=== PATIENT | female | born 1945 | race Caucasian/White ===

== ENCOUNTER 2017-01-03 00:32 | Emergency (ER) | payer MEDICARE, BC ==
[~2017-01-03 00:32] MED LIST: ADULT LOW DOSE81 MG; ASPIR 8181 M1 PO; ASPIR 8181 MG; ASPIRIN325 M3 PO; ATORVASTATIN CA40 M1 PO; CALCITRIOL0.25 MC1 PO; CATAPRES0.3 M1 PO; CEFTIN500 MG PO; CIPRO250 M2 PO; CLONIDINE HCL0.1 MG; CLONIDINE HCL0.2 M1 PO; COLACE100 M1 PO; DILTIAZEM 24HR300 M2 PO; DILTIAZEM 24HR300 M3 PO; DULCOLAX5 M1 PO; FIBER TABS625 MG; FUROSEMIDE40 M2 PO; IRON325 ( 65; KEFLEX500 M4 PO; LASIX40 MG; LASIX40 MG PO; LEVOTHROID100 MCG; LEVOTHYROXINE100 MC1 PO; LEVOXYL50 MCG; LIPITOR10 MG; LORTAB 5/500 TA1 TAB PO; METOPROLOL PO; NORCO 5-325 TA1 EACH PO; NORVASC; NORVASC10 MG; OYSTER CALCIUM500 MG; PERCOCET 5-3251 EACH PO; SENNA-S TABLET1 EAC3 PO; SYNTHROID112 MC1 PO; THYROID MED; TOPROL; TOPROL XL100 M1 PO; TOPROL XL100 MG; TRAMADOL HCL50 M2 PO; TYLENOL325 M2 PO; VITAMIN D31000 UNI3 PO
[2017-01-03 01:54] LABS: BASO % 0.5 % (0-2); EOS % 4.2 % (0-7); EOSINOPHIL ABSOLUTE COUNT 0.4 tho/cmm (0.0-0.7); HCT-HEMATOCRIT 37.1 % (34.0-49.0); HGB-HEMOGLOBIN 11.9 gm/dl (12.0-15.5); IMMATURE GRANULOCYTES ABSOLUTE 0.02 tho/cmm (0-0.03); IMMATURE GRANULOCYTES PERCENT 0.2 % (0-0.3); LYMPH % 20.5 % (20-45); LYMPH ABSOLUTE COUNT 1.8 tho/cmm (0.8-4.5); MCH (MEAN CORPUSCULAR HGB) 30.7 pg (28.0-32.0); MCHC MEAN CORPUSCULAR HGB CONC 32.1 % (32.0-36.0); MCV (MEAN CELL VOLUME) 95.9 fl (82.0-96.0); MEAN PLATELET VOLUME 11.4 cmc (9.4-12.4); MONO % 6.3 % (0-12); MONOCYTE ABSOLUTE COUNT 0.6 tho/cmm (0.0-1.2); NEUTROPHILS % 68.3 % (40-80); PLATELET COUNT 202 tho/cmm (150-450); RED BLOOD COUNT 3.87 mil/cmm (4.00-5.20); RED CELL DISTRIBUTION WIDTH 15.2 % (12.4-16.4); WHITE BLOOD COUNT 8.8 tho/cmm (4.0-10.0)
[2017-01-03 02:05] LABS: ALBUMIN 3.4 g/dl (3.5-5.0); ALKALINE PHOSPHATASE 158 U/L (33-138); ALT/SGPT 21 U/L (12-78); ANION GAP 12 mmol/L (0-20); AST/SGOT 19 U/L (10-40); BILIRUBIN,TOTAL 0.9 mg/dl (0-1.5); BLOOD UREA NITROGEN 34 mg/dl (6-24); CALCIUM 8.9 mg/dl (8.5-10.5); CARBON DIOXIDE-VENOUS 25 mmol/L (22-32); CHLORIDE 114 mmol/l (96-110); CREATININE 2.62 mg/dl (0.50-1.10); GLUCOSE 122 mg/dL (70-110); POTASSIUM 4.3 mmol/L (3.7-5.1); SODIUM 147 mmol/L (135-145); eGFR VALUE FOR BLACK 20 mL/Min
[2017-01-03] MEDS ORDERED: ZITHROMAX250 M1 PO (02:19)
[2017-06-01] MEDS ORDERED: ISOSORBIDE MONO30 M4 PO (10:37)
[2017-06-01] MEDS ORDERED: DEMADEX20 M1 PO (15:30)
[2017-06-10] MEDS ORDERED: STOP HOME MEDICATION (13:06)
[2017-06-10] MEDS ORDERED: ZOLOFT25 M1 PO (13:07)
[2017-06-10] MEDS ORDERED: ANORO ELLIPTA1 EAC1 INH (16:38)
== END 2017-01-03 02:33 ==
LOC: EDMED 00:32
PROVIDERS: Emergency Medicine Emergency Medical Services
DX: J32.9 Chronic sinusitis, unspecified (principal); I10 Essential (primary) hypertension; G47.33 Obstructive sleep apnea (adult) (pediatric); E07.9 Disorder of thyroid, unspecified; Z90.710 Acquired absence of both cervix and uterus; Z79.82 Long term (current) use of aspirin; Z79.899 Other long term (current) drug therapy; Z79.890 Hormone replacement therapy

== ENCOUNTER 2017-01-22 15:54 | Emergency (ER) | payer MEDICARE, BC ==
[~2017-01-22 15:54] MED LIST changes: +ZITHROMAX250 M1 PO
[2017-01-22] MEDS ORDERED: ZOFRAN ODT4 MG PO (17:50)
[2017-06-01] MEDS ORDERED: ISOSORBIDE MONO30 M4 PO (10:37)
[2017-06-01] MEDS ORDERED: DEMADEX20 M1 PO (15:30)
[2017-06-10] MEDS ORDERED: STOP HOME MEDICATION (13:06)
[2017-06-10] MEDS ORDERED: ZOLOFT25 M1 PO (13:07)
[2017-06-10] MEDS ORDERED: ANORO ELLIPTA1 EAC1 INH (16:38)
== END 2017-01-22 18:25 ==
LOC: EDMED 15:54
DX: J02.9 Acute pharyngitis, unspecified (principal); R11.0 Nausea; I10 Essential (primary) hypertension

== ENCOUNTER 2017-02-11 16:02 | Observation (INO) | payer MEDICARE, BC ==
[~2017-02-11 16:02] MED LIST changes: +ZOFRAN ODT4 MG PO
[2017-02-11] MEDS ORDERED: CATAPRES0.3 M1 PO (16:09)
[2017-02-11 16:53] LABS: BASO % 0.3 % (0-2); EOS % 4.8 % (0-7); EOSINOPHIL ABSOLUTE COUNT 0.4 tho/cmm (0.0-0.7); HCT-HEMATOCRIT 34.1 % (34.0-49.0); IMMATURE GRANULOCYTES ABSOLUTE 0.02 tho/cmm (0-0.03); IMMATURE GRANULOCYTES PERCENT 0.2 % (0-0.3); LYMPH % 22.4 % (20-45); MCH (MEAN CORPUSCULAR HGB) 29.6 pg (28.0-32.0); MCHC MEAN CORPUSCULAR HGB CONC 32.3 % (32.0-36.0); MCV (MEAN CELL VOLUME) 91.9 fl (82.0-96.0); MEAN PLATELET VOLUME 11.6 cmc (9.4-12.4); MONO % 5.5 % (0-12); MONOCYTE ABSOLUTE COUNT 0.5 tho/cmm (0.0-1.2); NEUTROPHILS % 66.8 % (40-80); PLATELET COUNT 236 tho/cmm (150-450); RED BLOOD COUNT 3.71 mil/cmm (4.00-5.20); RED CELL DISTRIBUTION WIDTH 15.7 % (12.4-16.4)
[2017-02-11 17:10] LABS: ANION GAP 16 mmol/L (0-20); BLOOD UREA NITROGEN 28 mg/dl (6-24); CALCIUM 9.2 mg/dl (8.5-10.5); CARBON DIOXIDE-VENOUS 23 mmol/L (22-32); CHLORIDE 112 mmol/l (96-110); CREATININE 2.37 mg/dl (0.50-1.10); GLUCOSE 83 mg/dL (70-110); POTASSIUM 3.9 mmol/L (3.7-5.1); SODIUM 147 mmol/L (135-145); eGFR VALUE FOR BLACK 23 mL/Min
[2017-02-11 22:28] LABS: ALB/GLOB RATIO 0.7 (0.8-2.0); BILIRUBIN,DIRECT 0.2 mg/dl (0.0-0.3); BILIRUBIN,INDIRECT 0.4 mg/dL (0.0-1.0); BILIRUBIN,TOTAL 0.6 mg/dl (0-1.5); MAGNESIUM 2.1 mg/dl (1.8-2.6)
[2017-02-11 23:50] LABS: URINE APPEARANCE HAZY; URINE BILIRUBIN NEGATIVE (NEG); URINE BLOOD NEGATIVE (NEG); URINE COLOR YELLOW; URINE GLUCOSE (UA) NEGATIVE (NEG); URINE KETONE NEGATIVE (NEG); URINE LEUKOCYTE ESTERASE NEGATIVE (NEG); URINE NITRITE NEGATIVE (NEG); URINE PROTEIN LARGE (NEG)
[2017-02-11 23:55] LABS: URINE RBC 0 /[HPF] (0-5)
[2017-02-11 23:56] LABS: URINE BACTERIA 1+
[2017-02-12 04:28] LABS: BASO % 0.3 % (0-2); EOS % 3.3 % (0-7); EOSINOPHIL ABSOLUTE COUNT 0.3 tho/cmm (0.0-0.7); HCT-HEMATOCRIT 33.4 % (34.0-49.0); HGB-HEMOGLOBIN 10.6 gm/dl (12.0-15.5); IMMATURE GRANULOCYTES ABSOLUTE 0.01 tho/cmm (0-0.03); IMMATURE GRANULOCYTES PERCENT 0.1 % (0-0.3); LYMPH ABSOLUTE COUNT 2.2 tho/cmm (0.8-4.5); MCH (MEAN CORPUSCULAR HGB) 29.2 pg (28.0-32.0); MCHC MEAN CORPUSCULAR HGB CONC 31.7 % (32.0-36.0); MEAN PLATELET VOLUME 11.9 cmc (9.4-12.4); MONO % 6.9 % (0-12); MONOCYTE ABSOLUTE COUNT 0.6 tho/cmm (0.0-1.2); NEUTROPHIL ABSOLUTE COUNT 5.6 tho/cmm (1.6-8.0); NEUTROPHIL-AUTOMATED 5.6 tho/cmm (1.6-8.0); NEUTROPHILS % 64.4 % (40-80); PLATELET COUNT 229 tho/cmm (150-450); RED BLOOD COUNT 3.63 mil/cmm (4.00-5.20); RED CELL DISTRIBUTION WIDTH 15.6 % (12.4-16.4); WHITE BLOOD COUNT 8.7 tho/cmm (4.0-10.0)
[2017-02-12 04:40] LABS: ANION GAP 14 mmol/L (0-20); BLOOD UREA NITROGEN 25 mg/dl (6-24); CALCIUM 9.1 mg/dl (8.5-10.5); CARBON DIOXIDE-VENOUS 25 mmol/L (22-32); CHLORIDE 112 mmol/l (96-110); CREATININE 2.38 mg/dl (0.50-1.10); GLUCOSE 97 mg/dL (70-110); POTASSIUM 3.5 mmol/L (3.7-5.1); SODIUM 147 mmol/L (135-145); eGFR VALUE FOR BLACK 23 mL/Min
[2017-02-12 05:27] LABS: ESR-ERYTHROCYTE SED RATE 70 mm/hr (0-30)
[2017-02-13 05:53] LABS: ANION GAP 14 mmol/L (0-20); BLOOD UREA NITROGEN 31 mg/dl (6-24); CALCIUM 8.7 mg/dl (8.5-10.5); CARBON DIOXIDE-VENOUS 25 mmol/L (22-32); CHLORIDE 111 mmol/l (96-110); CREATININE 2.53 mg/dl (0.50-1.10); GLUCOSE 91 mg/dL (70-110); POTASSIUM 3.2 mmol/L (3.7-5.1); SODIUM 147 mmol/L (135-145); eGFR VALUE FOR BLACK 21 mL/Min
[2017-02-13 14:23] LABS: ANION GAP 15 mmol/L (0-20); BLOOD UREA NITROGEN 33 mg/dl (6-24); CALCIUM 9.2 mg/dl (8.5-10.5); CARBON DIOXIDE-VENOUS 26 mmol/L (22-32); CHLORIDE 109 mmol/l (96-110); CREATININE 2.62 mg/dl (0.50-1.10); GLUCOSE 122 mg/dL (70-110); SODIUM 146 mmol/L (135-145); eGFR VALUE FOR BLACK 20 mL/Min
[2017-02-13 14:24] LABS: POTASSIUM 4.1 mmol/L (3.7-5.1)
[2017-02-14 05:04] LABS: ANION GAP 15 mmol/L (0-20); BLOOD UREA NITROGEN 38 mg/dl (6-24); CARBON DIOXIDE-VENOUS 25 mmol/L (22-32); CHLORIDE 112 mmol/l (96-110); CREATININE 2.57 mg/dl (0.50-1.10); GLUCOSE 97 mg/dL (70-110); POTASSIUM 3.7 mmol/L (3.7-5.1); SODIUM 148 mmol/L (135-145); eGFR VALUE FOR BLACK 21 mL/Min
[2017-02-14] MEDS ORDERED: NORVASC10 M2 PO (11:31)
[2017-02-14] MEDS ORDERED: DEMADEX20 M1 PO (11:32)
[2017-06-01] MEDS ORDERED: ISOSORBIDE MONO30 M4 PO (10:37)
[2017-06-01] MEDS ORDERED: DEMADEX20 M1 PO (15:30)
[2017-06-10] MEDS ORDERED: STOP HOME MEDICATION (13:06)
[2017-06-10] MEDS ORDERED: ZOLOFT25 M1 PO (13:07)
[2017-06-10] MEDS ORDERED: ANORO ELLIPTA1 EAC1 INH (16:38)
== END 2017-02-14 12:50 ==
LOC: EDMED 16:02 → EMR2 21:00 → PCUA 21:45
PROVIDERS: Emergency Medicine; Internal Medicine Cardiovascular Disease; ADMIT Hospitalist
DX: I13.0 Hypertensive heart and chronic kidney disease with heart failure and stage 1 through stage 4 chronic kidney disease, or unspecified chronic kidney disease (principal); E11.22 Type 2 diabetes mellitus with diabetic chronic kidney disease; N18.4 Chronic kidney disease, stage 4 (severe); I50.31 Acute diastolic (congestive) heart failure; R91.8 Other nonspecific abnormal finding of lung field; J98.11 Atelectasis; I07.1 Rheumatic tricuspid insufficiency; I27.2 Other secondary pulmonary hypertension; I35.1 Nonrheumatic aortic (valve) insufficiency; G47.33 Obstructive sleep apnea (adult) (pediatric); E03.9 Hypothyroidism, unspecified; I73.9 Peripheral vascular disease, unspecified; E87.6 Hypokalemia; Z79.82 Long term (current) use of aspirin; Z79.899 Other long term (current) drug therapy; Z88.0 Allergy status to penicillin; Z88.8 Allergy status to other drugs, medicaments and biological substances; Z91.041 Radiographic dye allergy status; Z86.010 Personal history of colon polyps; Z87.891 Personal history of nicotine dependence; Z86.73 Personal history of transient ischemic attack (TIA), and cerebral infarction without residual deficits; Z82.49 Family history of ischemic heart disease and other diseases of the circulatory system; Z90.710 Acquired absence of both cervix and uterus; Z90.79 Acquired absence of other genital organ(s); Z90.722 Acquired absence of ovaries, bilateral; Z98.51 Tubal ligation status; Z98.49 Cataract extraction status, unspecified eye; Z96.641 Presence of right artificial hip joint; Z98.890 Other specified postprocedural states
CPT/HCPCS: A9500; G0378; G8978-GO-CH; G8978-GO-CI; G8978-GP-CJ; G8978-GP-CK; G8979-GO-CH; G8979-GP-CJ; G8979-GP-CK; G8980-GO-CI; G8980-GP-CK; G8987-GO-CH; G8987-GO-CI; G8988-GO-CH; G8989-GO-CI; J0456; J1650; J1940; J2785; J3480; J7030; J7050

== ENCOUNTER 2017-04-01 18:22 | Inpatient (IN) | payer MEDICARE, BC ==
[~2017-04-01 18:22] MED LIST changes: +DEMADEX20 M1 PO; +NORVASC10 M2 PO
[2017-04-01] MEDS ORDERED: POTASSIUM CHLO10 ME2 PO (19:50)
[2017-04-01 20:52] LABS: BASO % 0.6 % (0-2); BASO ABSOLUTE COUNT 0.1 tho/cmm (0.0-0.2); EOS % 1.4 % (0-7); EOSINOPHIL ABSOLUTE COUNT 0.2 tho/cmm (0.0-0.7); HCT-HEMATOCRIT 36.1 % (34.0-49.0); HGB-HEMOGLOBIN 11.6 gm/dl (12.0-15.5); IMMATURE GRANULOCYTES ABSOLUTE 0.02 tho/cmm (0-0.03); IMMATURE GRANULOCYTES PERCENT 0.2 % (0-0.3); LYMPH % 15.5 % (20-45); LYMPH ABSOLUTE COUNT 1.9 tho/cmm (0.8-4.5); MCH (MEAN CORPUSCULAR HGB) 29.1 pg (28.0-32.0); MCHC MEAN CORPUSCULAR HGB CONC 32.1 % (32.0-36.0); MCV (MEAN CELL VOLUME) 90.5 fl (82.0-96.0); MEAN PLATELET VOLUME 11.1 cmc (9.4-12.4); MONO % 7.3 % (0-12); MONOCYTE ABSOLUTE COUNT 0.9 tho/cmm (0.0-1.2); NEUTROPHIL ABSOLUTE COUNT 9.3 tho/cmm (1.6-8.0); NEUTROPHIL-AUTOMATED 9.3 tho/cmm (1.6-8.0); PLATELET COUNT 266 tho/cmm (150-450); RED BLOOD COUNT 3.99 mil/cmm (4.00-5.20); RED CELL DISTRIBUTION WIDTH 16.9 % (12.4-16.4); WHITE BLOOD COUNT 12.4 tho/cmm (4.0-10.0)
[2017-04-01 21:06] LABS: ALB/GLOB RATIO 0.7 (0.8-2.0); ALBUMIN 3.5 g/dl (3.5-5.0); ALKALINE PHOSPHATASE 202 U/L (33-138); ALT/SGPT 25 U/L (12-78); ANION GAP 16 mmol/L (0-20); AST/SGOT 31 U/L (10-40); BILIRUBIN,TOTAL 0.7 mg/dl (0-1.5); BLOOD UREA NITROGEN 38 mg/dl (6-24); CALCIUM 8.7 mg/dl (8.5-10.5); CARBON DIOXIDE-VENOUS 22 mmol/L (22-32); CHLORIDE 108 mmol/l (96-110); CREATININE 3.87 mg/dl (0.50-1.10); GLUCOSE 123 mg/dL (70-110); LIPASE 226 U/L (73-393); POTASSIUM 3.8 mmol/L (3.7-5.1); SODIUM 142 mmol/L (135-145); eGFR VALUE FOR BLACK 13 mL/Min
[2017-04-02 00:06] LABS: C-REACTIVE PROTEIN 1.4 mg/dl (0-0.9)
[2017-04-02 01:36] LABS: URINE BILIRUBIN NEGATIVE (NEG); URINE BLOOD MODERATE (NEG); URINE GLUCOSE (UA) NEGATIVE (NEG); URINE KETONE NEGATIVE (NEG); URINE LEUKOCYTE ESTERASE POSITIVE (NEG); URINE NITRITE NEGATIVE (NEG); URINE PROTEIN LARGE (NEG)
[2017-04-02 01:44] LABS: URINE COLOR YELLOW
[2017-04-02 01:45] LABS: URINE APPEARANCE CLOUDY
[2017-04-02 01:47] LABS: URINE BACTERIA 2+
[2017-04-02 02:35] LABS: BASO % 0.2 % (0-2); EOS % 0.1 % (0-7); HCT-HEMATOCRIT 34.9 % (34.0-49.0); HGB-HEMOGLOBIN 11.2 gm/dl (12.0-15.5); IMMATURE GRANULOCYTES ABSOLUTE 0.05 tho/cmm (0-0.03); IMMATURE GRANULOCYTES PERCENT 0.3 % (0-0.3); LYMPH % 7.2 % (20-45); LYMPH ABSOLUTE COUNT 1.3 tho/cmm (0.8-4.5); MCH (MEAN CORPUSCULAR HGB) 29.4 pg (28.0-32.0); MCHC MEAN CORPUSCULAR HGB CONC 32.1 % (32.0-36.0); MCV (MEAN CELL VOLUME) 91.6 fl (82.0-96.0); MEAN PLATELET VOLUME 11.3 cmc (9.4-12.4); MONO % 6.8 % (0-12); MONOCYTE ABSOLUTE COUNT 1.2 tho/cmm (0.0-1.2); NEUTROPHIL ABSOLUTE COUNT 15.6 tho/cmm (1.6-8.0); NEUTROPHIL-AUTOMATED 15.6 tho/cmm (1.6-8.0); NEUTROPHILS % 85.4 % (40-80); PLATELET COUNT 235 tho/cmm (150-450); RED BLOOD COUNT 3.81 mil/cmm (4.00-5.20); RED CELL DISTRIBUTION WIDTH 17.1 % (12.4-16.4); WHITE BLOOD COUNT 18.2 tho/cmm (4.0-10.0)
[2017-04-02 02:52] LABS: ALB/GLOB RATIO 0.7 (0.8-2.0); ALBUMIN 3.4 g/dl (3.5-5.0); ALKALINE PHOSPHATASE 189 U/L (33-138); ALT/SGPT 22 U/L (12-78); ANION GAP 15 mmol/L (0-20); AST/SGOT 36 U/L (10-40); BILIRUBIN,TOTAL 0.7 mg/dl (0-1.5); BLOOD UREA NITROGEN 38 mg/dl (6-24); CARBON DIOXIDE-VENOUS 21 mmol/L (22-32); CHLORIDE 111 mmol/l (96-110); CREATININE 4.04 mg/dl (0.50-1.10); GLUCOSE 147 mg/dL (70-110); POTASSIUM 4.2 mmol/L (3.7-5.1); SODIUM 143 mmol/L (135-145); eGFR VALUE FOR BLACK 12 mL/Min
[2017-04-02 03:26] LABS: PROCALCITONIN 0.09 ng/ml (0.05-0.09)
[2017-04-02 06:32] LABS: PROCALCITONIN 0.14 ng/ml (0.05-0.09)
--- NOTE | 2017-04-02 15:48 | NUR ---
VIRTUAL CARE NOTE: PT AWAKE, RESTING IN BED. PT STATES SHE GOT LASIX AND IS NOW UP FREQ TO COMMODE, FEELING INCREASED FATIGUE/SOB WITH ACTIVITY. PT REQUEST ASSISTANCE TO MOVE TO CHAIR. AIDE/NURSE PAGED. PT HX CHF STATES SHE DOES WAY HERSELF DAILY AT HOME AND DENIED MORE THAN 1# WT INCREASE, STATES SOB DID NOT START UNTIL SHE ARRIVED TO HOSPITAL. PT DENIES CONCERNS AT THIS TIME. VN WILL CONTINUE TO MONITOR ELECTRONIC RECORD AND FOLLOW W/ PT
--- NOTE | 2017-04-02 19:24 | NUR ---
VIRTUAL CARE NOTE: ASSESSMENT DEFERRED. PT. SLEEPING.
[2017-04-03 05:33] LABS: BASO % 0.2 % (0-2); EOS % 0.1 % (0-7); HCT-HEMATOCRIT 31.9 % (34.0-49.0); IMMATURE GRANULOCYTES ABSOLUTE 0.05 tho/cmm (0-0.03); IMMATURE GRANULOCYTES PERCENT 0.4 % (0-0.3); LYMPH % 13.8 % (20-45); LYMPH ABSOLUTE COUNT 1.9 tho/cmm (0.8-4.5); MCH (MEAN CORPUSCULAR HGB) 28.7 pg (28.0-32.0); MCHC MEAN CORPUSCULAR HGB CONC 31.3 % (32.0-36.0); MCV (MEAN CELL VOLUME) 91.4 fl (82.0-96.0); MEAN PLATELET VOLUME 11.4 cmc (9.4-12.4); MONO % 6.8 % (0-12); NEUTROPHIL ABSOLUTE COUNT 11.1 tho/cmm (1.6-8.0); NEUTROPHIL-AUTOMATED 11.1 tho/cmm (1.6-8.0); NEUTROPHILS % 78.7 % (40-80); PLATELET COUNT 183 tho/cmm (150-450); RED BLOOD COUNT 3.49 mil/cmm (4.00-5.20); RED CELL DISTRIBUTION WIDTH 16.9 % (12.4-16.4); WHITE BLOOD COUNT 14.1 tho/cmm (4.0-10.0)
[2017-04-03 05:47] LABS: ALB/GLOB RATIO 0.6 (0.8-2.0); ALBUMIN 2.8 g/dl (3.5-5.0); ALKALINE PHOSPHATASE 144 U/L (33-138); ALT/SGPT 23 U/L (12-78); ANION GAP 14 mmol/L (0-20); AST/SGOT 64 U/L (10-40); BILIRUBIN,TOTAL 0.9 mg/dl (0-1.5); BLOOD UREA NITROGEN 47 mg/dl (6-24); CALCIUM 7.7 mg/dl (8.5-10.5); CARBON DIOXIDE-VENOUS 22 mmol/L (22-32); CHLORIDE 106 mmol/l (96-110); GLUCOSE 117 mg/dL (70-110); SODIUM 138 mmol/L (135-145); eGFR VALUE FOR BLACK 10 mL/Min
--- NOTE | 2017-04-03 13:05 | NUR ---
VIRTUAL CARE NOTE: PT AWAKE, SITTING UP IN CHAIR, NO VISITORS AT BEDSIDE AT THIS TIME. PT STATES SHE IS DOING REALLY WELL TODAY, DENIES SOB, STATES LESS COUGHING TODAY, O2 ON. PT HAS HX OF RENAL FAILURE AND STATES NEEDED DIALYSIS X 3 MONTH, AWARE OF DECREASE RENAL FXN THIS HOSPITAL STAY, AWARE AND VERBALIZES UNDERSTANDING OF TESTS ORDERED. PT DENIES QUESTIONS/CONCERNS AT THIS TIME. VN WILL CONTINUE TO MONITOR ELECTRONIC RECORD AND FOLLOW W/ PT
--- NOTE | 2017-04-03 19:20 | NUR ---
VIRTUAL CARE NOTE: PT. IS IN HER CHAIR, O2 ON AT 2L PER N/C WHICH IS REDUCED FROM PRIOR DAY. STATES THAT SHE IS NOT IN PAIN AND FEELS SO MUCH BETTER TODAY. SHE ALSO EXPLAINS THAT HER DOCTORS ARE JUST HOPING HER KIDNEYS SNAP OUT OF IT SO SHE THEN COULD GO HOME. EDUCATION ALSO REVIEWED OF FALL RISK PREVENTION. IS ABLE TO EXPLAIN EDUCATION BACK. INSTRUCTED TO CALL FOR FUTURE NEEDS. STATES VERBAL UNDERSTANDING.
[2017-04-04 05:45] LABS: BASO % 0.2 % (0-2); EOS % 0.4 % (0-7); HCT-HEMATOCRIT 29.8 % (34.0-49.0); HGB-HEMOGLOBIN 9.2 gm/dl (12.0-15.5); LYMPH ABSOLUTE COUNT 0.8 tho/cmm (0.8-4.5); MCHC MEAN CORPUSCULAR HGB CONC 30.9 % (32.0-36.0); MCV (MEAN CELL VOLUME) 90.6 fl (82.0-96.0); MEAN PLATELET VOLUME 12.1 cmc (9.4-12.4); MONO % 5.7 % (0-12); MONOCYTE ABSOLUTE COUNT 0.6 tho/cmm (0.0-1.2); NEUTROPHIL ABSOLUTE COUNT 8.5 tho/cmm (1.6-8.0); NEUTROPHIL-AUTOMATED 8.5 tho/cmm (1.6-8.0); NEUTROPHILS % 85.7 % (40-80); PLATELET COUNT 158 tho/cmm (150-450); RED BLOOD COUNT 3.29 mil/cmm (4.00-5.20); RED CELL DISTRIBUTION WIDTH 16.2 % (12.4-16.4); WHITE BLOOD COUNT 9.9 tho/cmm (4.0-10.0)
[2017-04-04 05:53] LABS: ALB/GLOB RATIO 0.6 (0.8-2.0); ALBUMIN 2.6 g/dl (3.5-5.0); ALKALINE PHOSPHATASE 147 U/L (33-138); ALT/SGPT 24 U/L (12-78); ANION GAP 16 mmol/L (0-20); AST/SGOT 44 U/L (10-40); BILIRUBIN,TOTAL 0.8 mg/dl (0-1.5); BLOOD UREA NITROGEN 56 mg/dl (6-24); CALCIUM 7.4 mg/dl (8.5-10.5); CARBON DIOXIDE-VENOUS 20 mmol/L (22-32); CHLORIDE 102 mmol/l (96-110); CREATININE 5.01 mg/dl (0.50-1.10); GLUCOSE 149 mg/dL (70-110); MAGNESIUM 1.8 mg/dl (1.8-2.6); PHOSPHOROUS 3.6 mg/dl (2.5-4.9); POTASSIUM 3.9 mmol/L (3.7-5.1); SODIUM 134 mmol/L (135-145); eGFR VALUE FOR BLACK 9 mL/Min
[2017-04-04 14:01] LABS: BASO % 0.3 % (0-2); EOS % 0.4 % (0-7); HCT-HEMATOCRIT 28.2 % (34.0-49.0); HGB-HEMOGLOBIN 9.1 gm/dl (12.0-15.5); IMMATURE GRANULOCYTES ABSOLUTE 0.02 tho/cmm (0-0.03); IMMATURE GRANULOCYTES PERCENT 0.3 % (0-0.3); LYMPH % 12.6 % (20-45); MCH (MEAN CORPUSCULAR HGB) 28.4 pg (28.0-32.0); MCHC MEAN CORPUSCULAR HGB CONC 32.3 % (32.0-36.0); MCV (MEAN CELL VOLUME) 88.1 fl (82.0-96.0); MEAN PLATELET VOLUME 11.1 cmc (9.4-12.4); MONO % 7.1 % (0-12); MONOCYTE ABSOLUTE COUNT 0.5 tho/cmm (0.0-1.2); NEUTROPHILS % 79.3 % (40-80); PLATELET COUNT 156 tho/cmm (150-450); RED CELL DISTRIBUTION WIDTH 16.6 % (12.4-16.4); WHITE BLOOD COUNT 7.6 tho/cmm (4.0-10.0)
[2017-04-04 14:11] LABS: ALBUMIN 2.6 g/dl (3.5-5.0); ANION GAP 16 mmol/L (0-20); BLOOD UREA NITROGEN 56 mg/dl (6-24); CALCIUM 7.4 mg/dl (8.5-10.5); CARBON DIOXIDE-VENOUS 21 mmol/L (22-32); CHLORIDE 101 mmol/l (96-110); CREATININE 4.93 mg/dl (0.50-1.10); GLUCOSE 134 mg/dL (70-110); IRON 16 ug/dl (37-170); IRON BINDING CAPACITY 163 ug/dl (250-450); PHOSPHOROUS 3.6 mg/dl (2.5-4.9); POTASSIUM 4.2 mmol/L (3.7-5.1); SODIUM 134 mmol/L (135-145); eGFR VALUE FOR BLACK 9 mL/Min
[2017-04-04 14:25] LABS: FERRITIN 288 ng/ml (8-250)
[2017-04-05 05:37] LABS: BASO % 0.1 % (0-2); EOS % 1.3 % (0-7); EOSINOPHIL ABSOLUTE COUNT 0.1 tho/cmm (0.0-0.7); HCT-HEMATOCRIT 28.6 % (34.0-49.0); HGB-HEMOGLOBIN 9.3 gm/dl (12.0-15.5); IMMATURE GRANULOCYTES ABSOLUTE 0.03 tho/cmm (0-0.03); IMMATURE GRANULOCYTES PERCENT 0.4 % (0-0.3); MCH (MEAN CORPUSCULAR HGB) 28.4 pg (28.0-32.0); MCHC MEAN CORPUSCULAR HGB CONC 32.5 % (32.0-36.0); MCV (MEAN CELL VOLUME) 87.2 fl (82.0-96.0); MEAN PLATELET VOLUME 11.5 cmc (9.4-12.4); MONO % 5.9 % (0-12); MONOCYTE ABSOLUTE COUNT 0.5 tho/cmm (0.0-1.2); NEUTROPHIL ABSOLUTE COUNT 6.3 tho/cmm (1.6-8.0); NEUTROPHIL-AUTOMATED 6.3 tho/cmm (1.6-8.0); NEUTROPHILS % 79.3 % (40-80); PLATELET COUNT 172 tho/cmm (150-450); RED BLOOD COUNT 3.28 mil/cmm (4.00-5.20); RED CELL DISTRIBUTION WIDTH 16.7 % (12.4-16.4)
[2017-04-05 05:47] LABS: IRON 15 ug/dl (37-170); IRON BINDING CAPACITY 171 ug/dl (250-450)
[2017-04-05 05:49] LABS: ALBUMIN 2.6 g/dl (3.5-5.0); ANION GAP 15 mmol/L (0-20); BLOOD UREA NITROGEN 62 mg/dl (6-24); CALCIUM 7.7 mg/dl (8.5-10.5); CARBON DIOXIDE-VENOUS 21 mmol/L (22-32); CHLORIDE 104 mmol/l (96-110); CREATININE 5.01 mg/dl (0.50-1.10); FERRITIN 308 ng/ml (8-250); GLUCOSE 97 mg/dL (70-110); PHOSPHOROUS 4.1 mg/dl (2.5-4.9); POTASSIUM 4.4 mmol/L (3.7-5.1); SODIUM 136 mmol/L (135-145); eGFR VALUE FOR BLACK 9 mL/Min
[2017-04-05 15:09] LABS: URINE CREATININE-RANDOM 83 mg/dl (30-125); URINE SODIUM-RANDOM 9 mmol/L (20-110)
--- NOTE | 2017-04-05 20:20 | NUR ---
VIRTUAL CARE NOTE: PT. IN THE CHAIR, STATES SHE IS BREATHING BETTER, HER O2 IN DOWN TO 2L PER N/C AND HER PAIN IS GOOD AT THIS TIME. DENIES ANY FURTHER QUESTIONS OR NEEDS AT THIS TIME. INSTRUCTED TO CALL FOR FUTURE NEEDS, STATES VERBAL AGREEMENT.
[2017-04-06 04:44] LABS: BASO % 0.4 % (0-2); EOS % 1.1 % (0-7); EOSINOPHIL ABSOLUTE COUNT 0.1 tho/cmm (0.0-0.7); HCT-HEMATOCRIT 28.8 % (34.0-49.0); HGB-HEMOGLOBIN 9.6 gm/dl (12.0-15.5); IMMATURE GRANULOCYTES ABSOLUTE 0.04 tho/cmm (0-0.03); IMMATURE GRANULOCYTES PERCENT 0.5 % (0-0.3); LYMPH % 12.7 % (20-45); LYMPH ABSOLUTE COUNT 0.9 tho/cmm (0.8-4.5); MCH (MEAN CORPUSCULAR HGB) 28.7 pg (28.0-32.0); MCHC MEAN CORPUSCULAR HGB CONC 33.3 % (32.0-36.0); MCV (MEAN CELL VOLUME) 86.2 fl (82.0-96.0); MEAN PLATELET VOLUME 11.2 cmc (9.4-12.4); MONO % 9.9 % (0-12); MONOCYTE ABSOLUTE COUNT 0.7 tho/cmm (0.0-1.2); NEUTROPHIL ABSOLUTE COUNT 5.6 tho/cmm (1.6-8.0); NEUTROPHIL-AUTOMATED 5.6 tho/cmm (1.6-8.0); NEUTROPHILS % 75.4 % (40-80); PLATELET COUNT 218 tho/cmm (150-450); RED BLOOD COUNT 3.34 mil/cmm (4.00-5.20); RED CELL DISTRIBUTION WIDTH 16.9 % (12.4-16.4); WHITE BLOOD COUNT 7.4 tho/cmm (4.0-10.0)
[2017-04-06 04:53] LABS: INR 1.2 INR (0.9-1.1); PROTHROMBIN TIME 13.5 SECONDS (9.0-13.6)
[2017-04-06 05:03] LABS: ALBUMIN 2.6 g/dl (3.5-5.0); ANION GAP 19 mmol/L (0-20); BLOOD UREA NITROGEN 66 mg/dl (6-24); CALCIUM 7.1 mg/dl (8.5-10.5); CARBON DIOXIDE-VENOUS 19 mmol/L (22-32); CHLORIDE 103 mmol/l (96-110); CREATININE 4.89 mg/dl (0.50-1.10); GLUCOSE 97 mg/dL (70-110); PHOSPHOROUS 3.6 mg/dl (2.5-4.9); POTASSIUM 3.8 mmol/L (3.7-5.1); SODIUM 137 mmol/L (135-145); eGFR VALUE FOR BLACK 9 mL/Min
[2017-04-06 05:40] LABS: ANION GAP 19 mmol/L (0-20); BLOOD UREA NITROGEN 64 mg/dl (6-24); CALCIUM 7.2 mg/dl (8.5-10.5); CARBON DIOXIDE-VENOUS 18 mmol/L (22-32); CHLORIDE 103 mmol/l (96-110); CREATININE 4.91 mg/dl (0.50-1.10); GLUCOSE 98 mg/dL (70-110); POTASSIUM 3.8 mmol/L (3.7-5.1); SODIUM 136 mmol/L (135-145); eGFR VALUE FOR BLACK 9 mL/Min
[2017-04-07 07:17] LABS: HGB-HEMOGLOBIN 9.8 gm/dl (12.0-15.5); PLATELET COUNT 259 tho/cmm (150-450)
[2017-04-07 07:37] LABS: ANION GAP 19 mmol/L (0-20); BLOOD UREA NITROGEN 66 mg/dl (6-24); CALCIUM 7.2 mg/dl (8.5-10.5); CARBON DIOXIDE-VENOUS 19 mmol/L (22-32); CHLORIDE 103 mmol/l (96-110); CREATININE 4.35 mg/dl (0.50-1.10); GLUCOSE 94 mg/dL (70-110); POTASSIUM 3.7 mmol/L (3.7-5.1); SODIUM 137 mmol/L (135-145); eGFR VALUE FOR BLACK 11 mL/Min
--- NOTE | 2017-04-07 15:56 | NUR ---
VIRTUAL CARE NOTE: PT UP IN CHAIR. IN NO DISTRESS. SCD'S ON AND OXYGEN IN PLACE. NO QUESTIONS, NEEDS. WILL CONTINUE TO MONITOR. ELECTRONIC CHART REVIEWED.
[2017-04-08 06:13] LABS: ANION GAP 16 mmol/L (0-20); BLOOD UREA NITROGEN 65 mg/dl (6-24); CALCIUM 7.7 mg/dl (8.5-10.5); CARBON DIOXIDE-VENOUS 21 mmol/L (22-32); CHLORIDE 104 mmol/l (96-110); CREATININE 3.97 mg/dl (0.50-1.10); GLUCOSE 94 mg/dL (70-110); SODIUM 137 mmol/L (135-145); eGFR VALUE FOR BLACK 12 mL/Min
--- NOTE | 2017-04-08 15:10 | NUR ---
VIRTUAL CARE NOTE: PT AWAKE, SITTING UP IN CHAIR, SCDs ON. PT STATES SHE IS FEELING BETTER TODAY. PT REMAINS ON O2. PT DENIES PAIN, SOB. PT DENIES QUESTIONS/CONCERNS AT THIS TIME. VN WILL CONTINUE TO MONITOR ELECTRONIC RECORD AND FOLLOW WITH PT.
--- NOTE | 2017-04-08 19:29 | NUR ---
VIRTUAL CARE NOTE: ASSESSMENT DEFERRED., PT. SLEEPING.
[2017-04-09 05:46] LABS: BASO % 0.6 % (0-2); BASO ABSOLUTE COUNT 0.1 tho/cmm (0.0-0.2); EOS % 2.1 % (0-7); EOSINOPHIL ABSOLUTE COUNT 0.2 tho/cmm (0.0-0.7); HCT-HEMATOCRIT 28.7 % (34.0-49.0); HGB-HEMOGLOBIN 9.4 gm/dl (12.0-15.5); IMMATURE GRANULOCYTES ABSOLUTE 0.06 tho/cmm (0-0.03); IMMATURE GRANULOCYTES PERCENT 0.7 % (0-0.3); LYMPH % 14.5 % (20-45); LYMPH ABSOLUTE COUNT 1.3 tho/cmm (0.8-4.5); MCH (MEAN CORPUSCULAR HGB) 28.7 pg (28.0-32.0); MCHC MEAN CORPUSCULAR HGB CONC 32.8 % (32.0-36.0); MCV (MEAN CELL VOLUME) 87.5 fl (82.0-96.0); MEAN PLATELET VOLUME 10.7 cmc (9.4-12.4); MONO % 8.5 % (0-12); MONOCYTE ABSOLUTE COUNT 0.8 tho/cmm (0.0-1.2); NEUTROPHIL ABSOLUTE COUNT 6.6 tho/cmm (1.6-8.0); NEUTROPHIL-AUTOMATED 6.6 tho/cmm (1.6-8.0); NEUTROPHILS % 73.6 % (40-80); PLATELET COUNT 331 tho/cmm (150-450); RED BLOOD COUNT 3.28 mil/cmm (4.00-5.20); RED CELL DISTRIBUTION WIDTH 17.2 % (12.4-16.4); WHITE BLOOD COUNT 8.9 tho/cmm (4.0-10.0)
[2017-04-09 05:58] LABS: ALBUMIN 2.6 g/dl (3.5-5.0); ANION GAP 18 mmol/L (0-20); BLOOD UREA NITROGEN 64 mg/dl (6-24); CALCIUM 7.5 mg/dl (8.5-10.5); CARBON DIOXIDE-VENOUS 21 mmol/L (22-32); CHLORIDE 98 mmol/l (96-110); CREATININE 3.74 mg/dl (0.50-1.10); GLUCOSE 100 mg/dL (70-110); PHOSPHOROUS 4.6 mg/dl (2.5-4.9); POTASSIUM 3.4 mmol/L (3.7-5.1); SODIUM 134 mmol/L (135-145); eGFR VALUE FOR BLACK 13 mL/Min
[2017-04-09] MEDS ORDERED: BENGAY ULTRA ST TP (11:10)
[2017-06-01] MEDS ORDERED: ISOSORBIDE MONO30 M4 PO (10:37)
[2017-06-01] MEDS ORDERED: DEMADEX20 M1 PO (15:30)
[2017-06-10] MEDS ORDERED: STOP HOME MEDICATION (13:06)
[2017-06-10] MEDS ORDERED: ZOLOFT25 M1 PO (13:07)
[2017-06-10] MEDS ORDERED: ANORO ELLIPTA1 EAC1 INH (16:38)
== END 2017-04-09 15:15 | disposition home health service (06) | DRG 917 ==
LOC: EDMED 18:22 → EMR2 23:59 → 5WD 04-02 01:47
PROVIDERS: Emergency Medicine; Family Medicine; Internal Medicine; Internal Medicine Cardiovascular Disease; Internal Medicine Nephrology; ADMIT Internal Medicine
PROC: 5A09357 Assistance with Respiratory Ventilation, Less than 24 Consecutive Hours, Continuous Positive Airway Pressure (ICD-10-PCS; principal; 2017-04-02)
DX: T62.91XA Toxic effect of unspecified noxious substance eaten as food, accidental (unintentional), initial encounter (principal); J96.01 Acute respiratory failure with hypoxia; I50.33 Acute on chronic diastolic (congestive) heart failure; N18.4 Chronic kidney disease, stage 4 (severe); E11.22 Type 2 diabetes mellitus with diabetic chronic kidney disease; I27.2 Other secondary pulmonary hypertension; K52.1 Toxic gastroenteritis and colitis; I95.9 Hypotension, unspecified; N17.9 Acute kidney failure, unspecified; I13.0 Hypertensive heart and chronic kidney disease with heart failure and stage 1 through stage 4 chronic kidney disease, or unspecified chronic kidney disease; N39.0 Urinary tract infection, site not specified; I50.9 Heart failure, unspecified; E78.5 Hyperlipidemia, unspecified; I73.9 Peripheral vascular disease, unspecified; E03.9 Hypothyroidism, unspecified; Z86.73 Personal history of transient ischemic attack (TIA), and cerebral infarction without residual deficits; I65.29 Occlusion and stenosis of unspecified carotid artery; Z88.0 Allergy status to penicillin; Z88.8 Allergy status to other drugs, medicaments and biological substances; Z91.041 Radiographic dye allergy status; G47.33 Obstructive sleep apnea (adult) (pediatric); Z87.891 Personal history of nicotine dependence; Z79.82 Long term (current) use of aspirin; I34.0 Nonrheumatic mitral (valve) insufficiency; D63.1 Anemia in chronic kidney disease; D50.9 Iron deficiency anemia, unspecified; M25.562 Pain in left knee; R00.0 Tachycardia, unspecified
CPT/HCPCS: C8924; J0744; J0885; J1650; J1756; J1940; J2270; J2405; J7030; J7050